=== PATIENT | female | born 1990 | race African-American/Black ===

== ENCOUNTER 2022-07-04 10:00 | Emergency (ER) | payer OTHER ==
--- OUTSIDE RECORDS SUMMARY | 2022-07-04 10:07 | XMS REPORT | Continuity of Care Document ---
:1990 Author Organization [facility] t Address [address] [place] [address] [address] [place] [address] Care Team Providers Name Role Phone Theresa Moreland MD Primary Care Physician MIRELLA HUGO Attending Clinician Unavailable [id number] Attending Clinician Unavailable Mirella Hugo MD Attending Clinician [phone] [email or web address] Attending Clinician Unavailable [id number] Attending Clinician Unavailable Theresa Moreland MD Attending Clinician RENETTA REED Attending Clinician Unavailable Payers Payer Name Policy Type Policy Number Effective Date Expiration Date Kristen patterson [employer] P [id number] 2021 STAR 00:00:00 [employer] P [id number] STAR BC[employer] 2 [id number] 2021 00:00:00 Problems Condition Condition Condition Status Onset Resolution Last Treating Co mments Source Name Details Category Date Date Treatment Clinician Date Less than Less than Disease Active Delfino sey 8 weeks 8 weeks 4-16 Seybold gestation gestation 00:00: of of 00 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 Social History Social Habit Start Date Stop Date Quantity Comments Source ASSERTION 2021-10-06 [place] 00:00:00 History SDOH Mary Madrigal verna Alcohol Comment History of Pipe Smoker Mary Neris morin tobacco use History SDNE [facility] St[facility] Drinks History SDOH [facility] Binge Hospital Exposure to 2021-09-29 2021-10-09 Not sure Mary morin SARS-CoV-2 00:00:00 11:21:00 (event) Tobacco use and 2020-10-22 2020-10-22 Smokeless tobacco [facility] exposure 00:00:00 00:00:00 non-user Hospital Alcohol intake 2020-10-22 2020-10-22 Lifetime [facility] 00:00:00 00:00:00 non-drinker Hospital (finding) History SDOH 2020-10-22 2020-10-22 1 [facility] Alcohol Frequency 00:00:00 00:00:00 Hospita l Sex Assigned At [birth year] [facility] 00:00:00 00:00:00 Hospital Smoking Status Start Date Stop Date Source Ex-smoker 2021-10-26 00:00:00 2021-10-26 00:00:00 Mary godwin Smokes tobacco daily 2021-10-01 00:00:00 [place] Never smoked tobacco [facility] Medications Ordered Filled Start Stop Current Ordering Indication Dosage Frequency Signature Comments Components Source Medication Medication Date Date Medication? Clinician (SIG) Name Name Ampicillin Yes [id number] 500mg Take 1 Mary 500 MG oral 4-16 capsule Seybo ld Capsule 00:00: (500 mg 00 total) by mouth 3 times daily Ampicillin 2021- No [id number] 500mg Take 1 Mary 500 MG oral 4-16 -04 capsule Seyb old Capsule 00:00: 00:00 (500 mg 00 :00 total) by mouth 3 times daily METRONIDAZO Yes [id number] Apply Mary LE VAGINAL 08 intravagin Ashlie bowling (METROGEL 00:00: ally once VAGINAL) 00 a day one 0.75 % applicatio vaginal Gel n x 5 days METRONIDAZO 2021- No [id number] Apply Mary LE VAGINAL 10-01 intravagin Se ybold (METROGEL 00:00: 00:00 ally once VAGINAL) 00 :00 a day one 0.75 % applicatio vaginal Gel n x 5 days Ibuprofen Yes TAKE 1 Mary 800 MG oral 3-29 TABLET BY Sey bold Tablet 00:00: MOUTH 00 EVERY 6 HOURS NEEDED PAIN Ibuprofen Yes TAKE 1 Mary 800 MG oral 3-29 TABLET BY Sey bold Tablet 00:00: MOUTH 00 EVERY 6 HOURS NEEDED PAIN Ibuprofen Yes TAKE 1 Mary 800 MG oral 3-29 TABLET BY Sey bold Tablet 00:00: MOUTH 00 EVERY 6 HOURS NEEDED PAIN No known No No known Metho di medications 10-[address] 09:02: s Hospita 06 l Immunizations Ordered Immunization Filled Immunization Date Status Commen ts Source Name Name Covid-19 Vaccine 2021-07-05 Completed Mary godwin (RubyRide), Mrna-lnp, 00:00:00 Louis Protein, Pf, 30mcg/0.3ml,IM Covid-19 Vaccine 2021-07-05 Completed Mary godwin (RubyRide), Mrna-lnp, 00:00:00 Louis Protein, Pf, 30mcg/0.3ml,IM Covid-19 Vaccine 2021-07-05 Completed Mary godwin (RubyRide), Mrna-lnp, 00:00:00 Louis Protein, Pf, 30mcg/0.3ml,IM Tdap- (Boostrix, 2012-10-01 Completed Mary godwin Adacel) 00:00:00 Tdap- (Boostrix, 2012-10-01 Completed Mary godwin Adacel) 00:00:00 Tdap- (Boostrix, 2012-10-01 Completed Mary godwin Adacel) 00:00:00 Vital Signs Vital Name Observation Time Observation Value Comments Source Systolic blood pressure 2021-10-27 14:18:00 105 mm[Hg] [place] Diastolic blood 2021-10-27 14:18:00 64 mm[Hg] Kelse y Seybold pressure Heart rate 2021-10-27 14:18:00 91 /min Mary S eybold Body weight 2021-10-27 14:18:00 77.111 kg Mary S eybold BMI 2021-10-27 14:18:00 30.11 kg/m2 Mary S eybold Systolic blood pressure 2021-10-09 17:17:00 118 mm[Hg] Mary Seybold Diastolic blood 2021-10-09 17:17:00 62 mm[Hg] Kelse y Seybold pressure Heart rate 2021-10-09 17:17:00 88 /min Mary S eybold Body temperature 2021-10-09 17:17:00 36.94 Mary Margaret ey Seybold Respiratory rate 2021-10-09 17:17:00 16 /min Margaret ey Seybold Body height 2021-10-09 17:17:00 160 cm Mary S eybold Body weight 2021-10-09 17:17:00 78.019 kg Mary S eybold BMI 2021-10-09 17:17:00 30.47 kg/m2 Mary S eybold Systolic blood pressure 2021-10-01 21:20:00 120 mm[Hg] Mary Seybold Diastolic blood 2021-10-01 21:20:00 76 mm[Hg] Kelse y Seybold pressure Heart rate 2021-10-01 21:20:00 76 /min Mary S eybold Body temperature 2021-10-01 21:20:00 37.17 Mary Margaret ey Seybold Respiratory rate 2021-10-01 21:20:00 14 /min Margaret ey Seybold Body height 2021-10-01 21:20:00 160 cm Mary S eybold Body weight 2021-10-01 21:20:00 78.019 kg Mary S eybold BMI 2021-10-01 21:20:00 30.47 kg/m2 Mary S eybold Procedures Procedure Date / Time Performed Performing Clinician [facility] e WET PREP 2021-10-27 14:42:00 Mirella Hugo URINE 2021-10-09 18:00:00 Theresa Moreland Se TEST-LAB TEST WET PREP 2021-10-01 21:34:00 Theresa Moreland Plan of Care Planned Activity Planned Date Details Comments Source Future Scheduled 2022-06-20 [facility]INE [facility] 15:26:39 (#1) [code = COVID-19 VACCINE (#1)] Future Scheduled 2022-06-20 Hepatitis C [facility] Test 15:26:39 screening (procedure) [code = 409539422] Future Scheduled 2022-06-20 [facility]ening for [facility] Test 15:26:39 malignant neoplasm of cervix (procedure) [code = 702652373] Future Scheduled 2022-06-20 [facility]UENZA [facility]ACCINE [facility] 15:26:39 [code = INFLUENZA VACCINE] Encounters Start End Encounter Admission Attending Care Care Encounter Source Date/Time Date/Time Type Type Clinicians Facility Department ID 2022-02-[address] [facility] [id number] [facility] 06:55:05 [id number] [facility] 2022-02-[address] [facility] [id number] [facility] 13:11:09 [id number] [facility] 2021-11-08 2021-11-08 Outpatient MARY HUGO [id number] Mary 15:45:00 15:45:00 MIRELLA Pantojaybol d 2021-10-27 2021-10-27 Outpatient IHY55-[id number] MARY COLÓN [id number] Mary 11:30:00 11:30:00 Seybol d 2021-10-27 2021-10-27 Outpatient [id number]-VZN MARY COLÓN [id number] Mary 11:25:00 11:25:00 Seybol d 2021-10-27 2021-10-27 New OB Mirella Hugo [id number] Mary 08:45:00 09:00:00 [id number] MEDICAL & [id number] Seybold [id number] DIAGNOSTI [id number] [facility] [id number] 2021-10-11 2021-10-11 Outpatient MARY HUGO MARY [id number] Mary 00:00:00 00:00:00 MIRELLA Seybol d 2021-10-09 2021-10-09 Outpatient LAB02 MARY MARY [id number] Mary 12:45:00 12:45:00 Seybol d 2021-10-09 2021-10-09 Office MARLEN MorelandROBBIE [id number] Mary 12:15:00 12:30:00 Visit [facility] Kiel [id number] Se ybold [id number] 2021-10-01 2021-10-01 Outpatient [id number]-[id number] MARY COLÓN [id number] Mary 17:10:00 17:10:00 Seybol d 2021-10-01 2021-10-01 Outpatient [id number]-SIP MARY COLÓN [id number] Mary 17:05:00 17:05:00 Seybol d 2021-10-01 2021-10-01 Outpatient [id number]-[id number] MARY COLÓN [id number] [facility] 17:00:00 17:00:00 Seybol d 2021-10-01 2021-10-01 Office JEANETET Moreland [id number] Mary 16:00:00 16:30:00 Visit [facility] [id number] Seybold DIAGNOSTI [id number] [facility] [id number] 2020-10-22 2020-10-22 Emergency [place] [id number] [place] 00:00:00 00:00:00 RENETTA [address] Results Test Description Test Time Test Comments Results Result Comments Source WET PREP 2021-10-27 18:05:00 Test Item Value Reference Range Interpretation Comme nts TRICHOMONAS EXAM (test code = 91664-3) Negative Negative YEAST EXAM (test code = 50186-7) Positive Negative A CLUE CELL EXAM (test code = 43538-0) Negative Negative BHARATHI (test code = BHARATHI) [facility] results reported in Eastern Time. [facility] Clinical Information:SRC:Vaginal Swab*Cervix ? ?[facility] Source of Specimen:Vaginal Swab*Cervix Lab Interpretation (test code = Abnormal 25913-7) Mary Almeida URINE TEST-LAB [id number] 18:11:40 Test Item Value Reference Range Interpretation Comments TEST (test code = 2106-3) Positive Mary PhuWET [id number] 23:25:00 Test Item Value Reference Range Interpretation Comments TRICHOMONAS EXAM (test Negative Negative code = 49285-9) YEAST EXAM (test code = Positive Negative A 12640-3) CLUE CELL EXAM (test code Positive Negative A = 78271-2) BHARATHI (test code = BHARATHI) [facility] results reported in Eastern Time. [facility] Clinical Information:SRC:Gen ital*Vaginal swab ? [facility] Source of Specimen:Genital*Va ginal swab Lab Interpretation (test Abnormal code = 72727-7) [place]
[2022-07-04 10:19] LABS: Urine Blood 2+ (Negative); Urine Glucose Negative (Negative); Urine Protein 2+ (Negative); Urine Specific Gravity 1.015 (1.005-1.030)
[2022-07-04] MEDS ORDERED: MORPHINE 4 MG/ML SYR ONE (10:36)
[2022-07-04] MEDS ORDERED: NA CHLORIDE 0.9% 1,000 ML ONE (10:37)
[2022-07-04 10:38] LABS: Absolute Lymphocytes (CBC) 2.1 K/uL (0.7-4.9); Hematocrit 37.2 % (36.0-45.0); Lymphocytes % 22.7 % (15.3-44.8); MCV 80.8 fL (80-100); MPV 8.2 fL (7.6-11.3); RBC Red Blood Cell Count 4.61 M/uL (3.86-4.86)
[2022-07-04 10:50] LABS: Urine Bacteria >50 /HPF (<20); Urine Mucus Slight /HPF (None Seen); Urine RBC 21-50 /HPF (None Seen); Urine WBC Clump Occasional /HPF (None Seen)
[2022-07-04 10:56] LABS: Albumin 3.6 g/dL (3.4-5.0); Bilirubin Total 0.4 mg/dL (0.2-1.0); Potassium 3.7 mmol/L (3.5-5.1)
[2022-07-04 11:14] LABS: Urine Specific Gravity/Preg 1.015 (1.005-1.030)
--- NOTE | 2022-07-04 11:38 | RAD REPORT ---
EXAM DESCRIPTION: CT - Abdomen Pelvis W Contrast - 07/04/2022 11:13 am CLINICAL HISTORY: RLQ pain COMPARISON: No comparisons TECHNIQUE: Biphasic, helical CT imaging of the abdomen and pelvis was performed following 100 ml non -ionic IV contrast. Oral contrast: No. All CT scans are performed using dose optimization technique as appropriate and may include automated exposure control or mA/KV adjustment according to patient size. FINDINGS: No suspicious findings in the lung bases. The liver, spleen, and pancreas show no suspicious findings. Gallbladder and biliary tree are also wi thout suspicious finding. Renal function is symmetric. No pyelonephritis is confirmed. There is enhancement of the bella of the right collecting system with only mild fullness of the right ureter. No obstructing or nonobstructin g calculus. No renal parenchymal mass. Urinary bladder is only partially filled. This accentuates the wall thickness. No definitive evidence for cystitis. No adrenal abnormalities. Uterus and ovaries show no suspicious findings. No dilated bowel loops or bowel wall thickening. Appendix is normal. No free air, free fluid or infla mmatory stranding. No mass or bulky lymphadenopathy. Fat only 15 millimeter umbilical hernia present . No suspicious bony findings. IMPRESSION: Right-side ureteritis. No pyelonephritis identifiable at this time. Cystitis is not justice pected.
[2022-07-04] MEDS ORDERED: CEFTRIAXONE 1000 MG/VIAL ONE ×2 (11:49→11:57)
--- NOTE | 2022-07-04 11:53 | ER ---
Nurse's Notes [facility] Name: Chelsey Mccormack Age: 32 yrs Sex: Female : 1990 Arrival Date: 07/04/2022 Time: 10:04 Bed 26 Private MD: Diagnosis: UTI/ Urinary tract infection, site not specified-Ureteritis Presentation: 07/04 10:07 Chief complaint: Patient states: is having right sided back pain radiating to RLQ since iw last night, denies n/v/d , no urinary symptoms, hurts when she walks. Coronavirus screen: At this time, the client does not indicate any symptoms associated with coronavirus-19. Ebola Screen: Patient negative for fever greater than or equal to 101.5 degrees Fahrenheit, and additional compatible Ebola Virus Disease symptoms Patient denies exposure to infectious person. Patient denies travel to an Ebola-affected area in the 21 days before illness onset. No symptoms or risks identified at this time. Initial Sepsis Screen: Does the patient meet any 2 criteria? No. Patient's initial sepsis screen is negative. Does the patient have a suspected source of infection? No. Patient's initial sepsis screen is negative. Risk Assessment: Do you want to hurt yourself or someone else? Patient reports no desire to harm self or others. Onset of symptoms was July 03, 2022. 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 - Social history:: Smoking status: Patient denies any tobacco usage or history of. Screenin:55 [facility] ED Fall Risk Assessment (Adult) History of falling in the last 3 months, ap3 including since admission No falls in past 3 months (0 pts). Abuse screen: Denies threats or abuse. Nutritional screening: No deficits noted. Tuberculosis screening: No symptoms or risk factors identified. Assessment: 10:55 General: Appears uncomfortable, Behavior is calm, cooperative. Pain: Complains of pain ap3 in right lower quadrant Pain currently is 10 out of 10 on a pain scale. Alleviated by nothing. Neuro: Level of Consciousness is awake, alert, obeys commands, Oriented to person, place, time, situation. Cardiovascular: Patient's skin is warm and dry. Respiratory: Airway is patent Respiratory effort is even, unlabored, Respiratory pattern is regular, symmetrical. 12:00 General: Appears distressed, uncomfortable, Behavior is cooperative, appropriate for 5 age. Pain: Complains of pain in right flank Pain currently is 10 out of 10 on a pain scale. Noted to be grimacing, guarding, resistant to movement. Neuro: Level of Consciousness is awake, alert, obeys commands, Oriented to person, place, time, situation. Cardiovascular: Capillary refill < 3 seconds Patient's skin is warm and dry. Respiratory: Airway is patent Respiratory effort is even, unlabored, Respiratory pattern is regular, symmetrical. Vital Signs: 10:07 BP 118 / 78; Pulse 94; Resp 16; Temp 98.2; Pulse Ox 99% on R/A; Pain 10/10; iw 11:17 BP 119 / 82; Pulse 83; Pulse Ox 100% on R/A; ap3 12:00 BP 122 / 85; Pulse 74; Resp 20; Pulse Ox 100% ; Pain 10/10; eh3 ED Course: 10:04 Patient arrived in ED. rg4 10:05 Kourtnye Tucker FNP-C is PHCP. snw 10:05 Leroy Miranda MD is Attending Physician. snw 10:09 Triage completed. iw 10:09 Arm band placed on. iw 10:12 Marisa Willis, JANEE is Primary Nurse. ap3 10:54 Lactate w/ 2H reflex if indic. Sent. ap3 10:54 Inserted saline lock: 20 gauge in right antecubital area, using aseptic technique. ap3 Blood collected. 10:54 Inserted saline lock: 20 gauge in left antecubital area, using aseptic technique. Blood ap3 collected. 10:54 CMP Sent. ap3 10:56 Patient has correct armband on for positive identification. Bed in low position. Call ap3 light in reach. Side rails up X 1. Pulse ox on. NIBP on. Door closed. Noise minimized. 11:15 CT Abd/Pelvis - IV Contrast Only In Process Unspecified. EDMS 11:17 Patient moved back from [place]. ap3 13:00 No provider procedures requiring assistance completed. IV discontinued, intact, eh3 bleeding controlled, No redness/swelling at site. Pressure dressing applied. Administered Medications: 10:54 Drug: NS 0.9% 1000 ml Route: IV; Rate: 1 bolus; Site: right antecubital; ap3 12:16 Follow up: IV Status: Completed infusion; IV Intake: 1000ml eh3 10:54 Drug: morphine 4 mg Route: IVP; Infused Over: 4 mins; Site: right antecubital; ap3 12:16 Follow up: Response: Pain is unchanged, physician notified eh3 12:04 Drug: Rocephin (cefTRIAXone) 1 grams Route: IV; Rate: calculated rate; Site: right mb9 antecubital; 12:15 Follow up: Response: No adverse reaction; IV Status: Completed infusion; IV Intake: [id number] 12:04 Drug: Zithromax (azithromycin) 1 grams Route: PO; mb9 12:37 Follow up: Response: No adverse reaction ap3 12:10 Drug: Ketorolac 30 mg Route: IVP; Site: right antecubital; eh3 12:36 Follow up: Response: Pain is decreased ap3 12:15 Drug: Dilaudid (HYDROmorphone) 0.5 mg {Note: Awake and alert.} Route: IVP; Site: right eh3 antecubital; 12:36 Follow up: Response: Pain is decreased ap3 Medication: 10:56 VIS not applicable for this client. ap3 Intake: 12:15 IV: 20ml; Total: 20ml. eh3 12:16 IV: 1000ml; Total: 1020ml. eh3 Outcome: 11:52 Discharge ordered by MD. hawley 13:13 Patient left the ED. eh3 13:13 Discharged to home ambulatory, with significant other. eh3 13:13 Condition: stable 13:13 Discharge instructions given to patient, Instructed on discharge instructions, follow up and referral plans. medication usage, Demonstrated understanding of instructions, follow-up care, medications, Prescriptions given X 3. Addendum: 07/06/2022 07:30 Addendum: Culture Results: Positive urine culture. No further action required. Bacteria s s sensitive to prescribed antibiotic. Signatures: Dispatcher [employer] EDMS Kourtney Tucker, MANAGER SERVICE DESK-C MANAGER SERVICE DESK-Csnw Cindi Roman, RN RN iw Brianne Concepcion, JANEE RN Ariadna Johnson4 Marisa Willis RN RN ap3 Yolanda Cobian RN RN 3 Saima Dean RN RN mb9 Corrections: (The following items were deleted from the chart) 07/04 12:20 12:15 Dilaudid (HYDROmorphone) 0.5 mg IVP in right antecubital 3 3
--- NOTE | 2022-07-04 11:53 | EDPHYS ---
Physician Documentation [facility] Name: Chelsey Mccormack Age: 32 yrs Sex: Female : 1990 Arrival Date: 07/04/2022 Time: 10:04 Bed 26 Private MD: ANGELINA Physician Leroy Miranda HPI: 07/04 10:32 This 32 yrs old Black Female presents to ER via Ambulatory with complaints of Flank snw Pain. 10:32 This 32 yrs old Black Female presents to ER via Ambulatory with complaints of abdominal snw pain. 10:33 The patient presents with abdominal pain right lower quadrant. Onset: The snw symptoms/episode began/occurred suddenly, last night. The symptoms radiate to the right flank. Associated signs and symptoms: none. The symptoms are described as steady. Severity of pain: At its worst the pain was moderate severe in the emergency department the pain is unchanged. The patient has not experienced similar symptoms in the past. The patient has not recently seen a physician. 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 - Social history:: Smoking status: Patient denies any tobacco usage or history of. ROS: 10:32 Constitutional: Negative for fever, chills, and weight loss, Eyes: Negative for injury, snw pain, redness, and discharge, ENT: Negative for injury, pain, and discharge, Neck: Negative for injury, pain, and swelling, Cardiovascular: Negative for chest pain, palpitations, and edema, Respiratory: Negative for shortness of breath, cough, wheezing, and pleuritic chest pain, Back: Negative for injury and pain, : Negative for injury, bleeding, discharge, and swelling, MS/Extremity: Negative for injury and deformity, Skin: Negative for injury, rash, and discoloration, Neuro: Negative for headache, weakness, numbness, tingling, and seizure, Psych: Negative for depression, anxiety, suicide ideation, homicidal ideation, and hallucinations. 10:32 Abdomen/GI: Positive for abdominal pain, of the right lower quadrant. Exam: 10:31 Constitutional: This is a well developed, well nourished patient who is awake, alert, snw and in no acute distress. Head/Face: Normocephalic, atraumatic. Eyes: Pupils equal round and reactive to light, extra-ocular motions intact. Lids and lashes normal. Conjunctiva and sclera are non-icteric and not injected. Cornea within normal limits. Periorbital areas with no swelling, redness, or edema. ENT: Nares patent. No nasal discharge, no septal abnormalities noted. Tympanic membranes are normal and external auditory canals are clear. Oropharynx with no redness, swelling, or masses, exudates, or evidence of obstruction, uvula midline. Mucous membranes moist. Neck: Trachea midline, no thyromegaly or masses palpated, and no cervical lymphadenopathy. Supple, full range of motion without nuchal rigidity, or vertebral point tenderness. No Meningismus. Chest/axilla: Normal chest wall appearance and motion. Nontender with no deformity. No lesions are appreciated. Cardiovascular: Regular rate and rhythm with a normal S1 and S2. No gallops, murmurs, or rubs. Normal PMI, no JVD. No pulse deficits. Respiratory: Lungs have equal breath sounds bilaterally, clear to auscultation and percussion. No rales, rhonchi or wheezes noted. No increased work of breathing, no retractions or nasal flaring. Back: No spinal tenderness. No costovertebral tenderness. Full range of motion. Skin: Warm, dry with normal turgor. Normal color with no rashes, no lesions, and no evidence of cellulitis. MS/ Extremity: Pulses equal, no cyanosis. Neurovascular intact. Full, normal range of motion. Neuro: Awake and alert, GCS 15, oriented to person, place, time, and situation. Cranial nerves II-XII grossly intact. Motor strength 5/5 in all extremities. Sensory grossly intact. Cerebellar exam normal. Normal gait. Psych: Awake, alert, with orientation to person, place and time. Behavior, mood, and affect are within normal limits. 10:31 Abdomen/GI: Inspection: abdomen appears normal. 10:31 Abdomen/GI: Bowel sounds: normal, in all quadrants, Palpation: moderate abdominal tenderness, severe abdominal tenderness, in the right lower quadrant, Indicators: McBurney's point is tender, Psoas sign is positive. Vital Signs: 10:07 BP 118 / 78; Pulse 94; Resp 16; Temp 98.2; Pulse Ox 99% on R/A; Pain 10/10; iw 11:17 BP 119 / 82; Pulse 83; Pulse Ox 100% on R/A; ap3 12:00 BP 122 / 85; Pulse 74; Resp 20; Pulse Ox 100% ; Pain 10/10; eh3 MDM: 10:14 Patient medically screened. snw 11:50 Differential diagnosis: appendicitis, diverticulitis, Ectopic , snw Pyelonephritis, Ureterolithiasis. Data reviewed: vital signs, nurses notes. Data interpreted: Pulse oximetry: on room air is 100 %. Interpretation: normal. Counseling: I had a detailed discussion with the patient and/or guardian regarding: the historical points, exam findings, and any diagnostic results supporting the discharge/admit diagnosis, lab results, radiology results, the need for outpatient follow up, to return to the emergency department if symptoms worsen or persist or if there are any questions or concerns that arise at home. Response to treatment: the patient's symptoms have markedly improved after treatment. Special discussion: Based on the history and exam findings, there is no indication for further emergent testing or inpatient evaluation. I discussed with the patient/guardian the need to see the primary care provider for further evaluation of the symptoms. 07/04 10:05 Order name: Urine Microscopic Only; Complete Time: 11:10 [facility] 07/04 10:20 Order name: Urine Dipstick-Ancillary; Complete Time: 10:25 [facility] 07/04 10:21 Order name: Urine --Ancillary (enter results); Complete Time: 11:17 bd 07/04 10:27 Order name: CBC with Diff; Complete Time: 10:43 snw 07/04 10:27 Order name: CMP; Complete Time: 11:10 sn 07/04 10:27 Order name: Blood Culture Adult (2) [facility] 07/04 10:27 Order name: Lactate w/ 2H reflex if indic.; Complete Time: 11:17 snw 07/04 10:28 Order name: CT Abd/Pelvis - IV Contrast Only; Complete Time: 11:40 sn 07/04 11:03 Order name: Urine Culture [facility] 07/04 10:05 Order name: Urine Dipstick-Ancillary (obtain specimen); Complete Time: 10:17 snw 07/04 10:05 Order name: Urine Test (obtain specimen); Complete Time: 10:17 snw 07/04 10:27 Order name: IV Saline Lock; Complete Time: 10:31 snw 07/04 10:27 Order name: Labs collected and sent; Complete Time: 10:53 snw Administered Medications: 10:54 Drug: NS 0.9% 1000 ml Route: IV; Rate: 1 bolus; Site: right antecubital; ap3 12:16 Follow up: IV Status: Completed infusion; IV Intake: 1000ml eh3 10:54 Drug: morphine 4 mg Route: IVP; Infused Over: 4 mins; Site: right antecubital; ap3 12:16 Follow up: Response: Pain is unchanged, physician notified eh3 12:04 Drug: Rocephin (cefTRIAXone) 1 grams Route: IV; Rate: calculated rate; Site: right mb9 antecubital; 12:15 Follow up: Response: No adverse reaction; IV Status: Completed infusion; IV Intake: [id number] 12:04 Drug: Zithromax (azithromycin) 1 grams Route: PO; mb9 12:37 Follow up: Response: No adverse reaction ap3 12:10 Drug: Ketorolac 30 mg Route: IVP; Site: right antecubital; eh3 12:36 Follow up: Response: Pain is decreased ap3 12:15 Drug: Dilaudid (HYDROmorphone) 0.5 mg {Note: Awake and alert.} Route: IVP; Site: right eh3 antecubital; 12:36 Follow up: Response: Pain is decreased ap3 Disposition Summary: 07/04/22 11:52 Discharge Ordered Location: Home snw Condition: Stable snw Diagnosis - UTI/ Urinary tract infection, site not specified - Ureteritis snw Followup: snw - With: Emergency Department - When: As needed - Reason: Worsening of condition Followup: snw - With: Private Physician - When: 2 - 3 days - Reason: Recheck today's complaints, Continuance of care, Re-evaluation by your physician Discharge Instructions: - Discharge Summary Sheet snw - Abdominal Pain, Adult snw - Urinary Tract Infection, Adult snw - Rehydration, Adult snw Forms: - Medication Reconciliation Form snw - Thank You Letter snw - Antibiotic Education snw - Prescription Opioid Use snw - Work release form snw Prescriptions: - Augmentin 875-125 mg Oral Tablet - take 1 tablet by ORAL route every 12 hours for 10 days; 20 tablet; Refills: 0, snw Product Selection Permitted - Mobic 7.5 mg Oral Tablet - take 1 tablet by ORAL route once daily take with food; 20 tablet; Refills: 0, snw Product Selection Permitted - promethazine 25 mg Oral Tablet - take 1 tablet by ORAL route every 6 hours As needed; 20 tablet; Refills: 0, snw Product Selection Permitted Signatures: Dispatcher [employer] EDMS Kourtney Tucker, BIOMEDICAL ENGINEERING TECHNOLOGIST-C BIOMEDICAL ENGINEERING TECHNOLOGIST-Csnw Cindi Roman, RN Marisa Longoria RN RN ap3 Yolanda Cobian RN RN eh3 Jermaine, Saima Kimball RN RN mb9
[2022-07-04] MEDS ORDERED: AZITHROMYCIN 1 GM PACKET ONE (11:57)
[2022-07-04] MEDS ORDERED: HYDROMORPHONE HCL 0.5 MG/0.5 ML INJ ONE (12:10)
[2022-07-04] MEDS ORDERED: KETOROLAC 30 MG/ML INJ ONE (12:11)
[2022-07-04 13:30] VITALS: TEMP 98.2
[2022-07-04 13:37] VITALS: O2SAT 100
[2022-07-04 13:52] VITALS: BP 122/85
== END 2022-07-04 13:13 | disposition home or self-care (01) ==
LOC: ER 10:00
DX: N39.0 Urinary tract infection, site not specified (principal); N28.89 Other specified disorders of kidney and ureter
CPT/HCPCS: 96361; 87040; 87088; 85025; 87086; 36415; 81025; 83605; 87077; 87186; 80053; 74177; 96375; 96374; 99284; Q9967; J1170; J7030; 81003; 81015